=== PATIENT | female | born 1955 | race Two or more races ===

== ENCOUNTER 2024-10-05 08:43 | Emergency (ER) | payer MEDICARE, OTHER ==
[~2024-10-05] VITALS: Ht 152.4 cm; Wt 85.6 kg
--- NOTE | 2024-10-05 09:00 | ED.PDOC ---
History of Present Illness HPI Comments This is a 69 year old female presenting to the ED with chief complaint of neck mass. Patient reports that she has been experiencing a mass to the left side of her throat for some time, causing increased pain, difficulties in swallowing, headaches, and tingling to her bilateral arms. Patient relays that she has tried to follow up with her PCP from [facility] to have a CT scan performed, but she has not had one ordered yet. Patient denies any N/V, sore throat, dizziness, SOB, cough, or any further symptoms. Chief Complaint: Neck Pain Time Seen by MD: 08:56 Reviewed Notes: Nurses Notes, Medications, Allergies Allergies: Coded Allergies: Penicillins (Verified Allergy, Unknown, 10/05/24) Procaine (Verified Allergy, Unknown, 10/05/24) Information Source: Patient Mode of Arrival: Ambulatory Severity: Moderate Timing: Hours Duration: Since onset Prehospital treatment: None Past Medical History PAST MEDICAL HISTORY: Asthma Past Medical History (Other): Glaucoma, white coat syndrome Surgical History (Other): Cataracts COMMUNICATION MANAGER History: Denies all COMMUNICATION MANAGER Hx Family History Family History: Reviewed,noncontributory to illness Social History Smoker: Non-Smoker Alcohol: Denies ETOH Use Drugs: Denies Drug Use Lives In: Home Constitutional: denies: chills, diaphoresis, fatigue, fever, malaise, sweats, weakness, others EENTM: reports: throat pain, throat swelling, others (neck mass); denies: blurred vision, double vision, ear bleeding, ear discharge, ear drainage, ear pain, ear ringing, eye pain, eye redness, hearing loss, mouth pain, mouth swelling, nasal discharge, nose bleeding, nose congestion, nose pain, photophobia, tearing, voice changes Respiratory: denies: cough, hemoptysis, orthopnea, SOB at rest, shortness of breath, SOB with excertion, stridor, wheezing, others Cardiovascular: denies: chest pain, dizzy spells, diaphoresis, Dyspnea on exertion, edema, irregular heart beat, left arm pain, lightheadedness, palpitations, PND, syncope, others Gastrointestinal: denies: abdomen distended, abdominal pain, blood streaked bowels, constipated, diarrhea, dysphagia, difficulty swallowing, hematemesis, melena, nausea, poor appetite, poor fluid intake, rectal bleeding, rectal pain, vomiting, others Genitourinary: denies: abnormal vagina bleeding, burning, dyspareunia, dysuria, flank pain, frequency, hematuria, incontinence, pain, , vagina discharge, urgency, others Neurological: reports: headache, tingling; denies: dizziness, fainting, left sided numbness, left sided weakness, numbness, paresthesia, pre-existing deficit, right sided numbness, right sided weakness, seizure, speech problems, tremors, weakness, others Musculoskeletal: denies: back pain, gout, joint pain, joint swelling, muscle pain, muscle stiffness, neck pain, others Integumetry: denies: bruises, change in color, change in hair/nails, dryness, laceration, lesions, lumps, rash, wounds, others Allergic/Immunocompromised: denies: Difficulty Healing, Frequent Infections, Hives, Itching, others Hematologic/Lymphatic: denies: anemia, blood clots, easy bleeding, easy bruising, swollen glands, others Endocrine: denies: excessive hunger, excessive sweating, excessive thirst, excessive urination, flushing, intolerance to cold, intolerance to heat, unexplained weight gain, unexplained weight loss, others Psychiatric: denies: anxiety, bipolar disorder, depression, hopeless, panic disorder, schizophrenia, sleepless, suicidal, others All Other Systems: Reviewed and Negative Physical Exam General Appearance: Moderate Distress, Normal HEENT: Normal ENT Inspection, Pharynx Normal, TMs Normal Neck: Full Range of Motion, Non-Tender, Other (Submandibular left lymph gland enlarged) Respiratory: Chest Non-Tender, Lungs Clear, No Accessory Muscle Use, No Respiratory Distress, Normal Breath Sounds Cardiovascular: No Edema, No JVD, No Murmur, No Gallop, Normal Peripheral Pulses, Regular Rate/Rhythm Breast Exam: Deferred Gastrointestinal: No Organomegaly, Non Tender, No Pulsatile Mass, Normal Bowel Sounds, Soft Genitalia: Deferred Pelvic: Deferred Rectal: Deferred Extremities: No calf tenderness, Normal capillary refill, Normal inspection, Normal range of motion, Non-tender, No pedal edema Musculoskeletal : Apperance: Normal Neurologic: Alert, stitch separator II-XII nml as Tested, No Motor Deficits, Normal Affect, Normal Mood, No Sensory Deficits Cerebellar Function: Normal Reflexes: Normal Skin: Dry, Normal Color, Warm Peripheral Pulses: 3+ Radial (R), 3+ Radial (L) Lymphatic: No Adenopathy Was a procedure done? Was a procedure done?: No Differential Dx Considerations may include: Sailanditis Radiculopathy X-Ray, Labs, Meds, VS Vital Signs Date Time Temp Pulse Resp B/P (MAP) Pulse Ox O2 Delivery O2 Flow Rate FiO2 10/05/24 09:23 97.8 82 16 165/91 (115) 95 97.8 10/05/24 09:23 82 16 95 Room Air 10/05/24 09:16 78 20 98 Room Air* 0 21 10/05/24 09:00 97.9 95 18 192/93 (126) 96 97.9 204/94 (130) Current Medications Medications (Trade) Dose Ordered Sig/Millie Route Start Time Stop Time Status Last Admin Prednisone 20 mg ONCE ONCE PO 10/05/24 09:00 10/05/24 09:01 DC 10/05/24 09:03 Acetaminophen/ Hydrocodone Bitart ([place] 5/325MG Tab) 1 tab ONCE ONCE PO 10/05/24 09:15 10/05/24 09:16 DC 10/05/24 09:22 Patient alert. Complaining of neck pain. X-ray of the cervical spine does not show any acute process degenerative changes. Vitals stable. Answering questions. Was given prescription of prednisone Keflex antibiotic. Blood pressure was elevated in the ER as per family she has white coat syndrome. Explained to the patient she will need software product specialist possible surgery. Was told to follow up with her primary care physician. Was told to come back if there is any problem. Time of 1ST Reevaluation: 09:56 Reevaluation 1ST: Unchanged Patient Education/Counseling: Diagnosis, Treatment Family Education/Counseling: No Family Present Additional Information Previous visits reviewed: None The following tests were ordered, and results were reviewed by me: C-Spine XR Additional Information was gathered from interviewing the following independent historians: Grandson I reviewed and agreed with the following test results read by other providers: C-Spine XR I discussed treatment and results with medical personnel and: patient and grandson Comprehensive systems review obtained and negative except for what is stated in the HPI. SEPSIS Sepsis Screen Physician Orders Cspine Comp 5 View (10/05/24 08:57) Vital Signs Date Time Temp Pulse Resp B/P (MAP) Pulse Ox O2 Delivery O2 Flow Rate FiO2 10/05/24 09:23 97.8 82 16 165/91 (115) 95 97.8 10/05/24 09:23 82 16 95 Room Air 10/05/24 09:16 78 20 98 Room Air* 0 21 10/05/24 09:00 97.9 95 18 192/93 (126) 96 97.9 204/94 (130) Medications Medications Dose Ordered Sig/Millie Route Start Time Stop Time Status Last Admin Dose Admin Acetaminophen/ Hydrocodone Bitart 1 tab ONCE ONCE PO 10/05/24 09:15 10/05/24 09:16 DC 10/05/24 09:22 Prednisone 20 mg ONCE ONCE PO 10/05/24 09:00 10/05/24 09:01 DC 10/05/24 09:03 Departure 1 Departure Time of Disposition: 09:05 Impression: Primary Impression: Cervical radiculopathy Additional Impression: Salivary disorder Disposition: 01 HOME / SELF CARE / HOMELESS Condition: Good e-Prescriptions Pantoprazole Sodium Sesquihydr (Protonix) 40 Mg Tab 40 MG PO DAILY for 10 Days, #10 TAB Prov: DARCIE CARLIN MD 10/05/24 Prednisone (Prednisone) 20 Mg Tab 20 MG PO DAILY for 5 Days, #5 MG Prov: DARCIE CARLIN MD 10/05/24 Discharged With: Self Critical Care Note Critical Care Time?: No Stability Stability form required: No Heart Score Heart Score: Heart Score Response (Comments) Value History N/A 0 EKG N/A 0 Age N/A 0 Risk Factors N/A 0 Troponin N/A 0 Total 0 I personally scribed for DARCIE CARLIN MD ([email or web address]) on 10/05/24 at 09:00. Electronically submitted by Rohith Armstrong ([email or web address]). I personally scribed for DARCIE CARLIN MD ([email or web address]) on 10/05/24 at 10:21. Electronically submitted by Rohith Armstrong ([email or web address]). DARCIE CARLIN MD Oct 05, 2024 09:00
[2024-10-05] MEDS: predniSONE 20 MG TAB PO ONE (09:03)
[2024-10-05 09:16] VITALS: PULSE 78; RESP 20; O2SAT 98
[2024-10-05] MEDS: HYDROcodone-ACET 5/325MG TAB PO ONE (09:22)
[2024-10-05 09:23] VITALS: BP 165/91; PULSE 82; RESP 16; TEMP 97.8; O2SAT 95
--- NOTE | 2024-10-05 09:37 | DVH ---
INDICATION: rediculopathy COMPARISON: None TECHNIQUE: 3 views of the cervical spine were obtained. FINDINGS: The cervical vertebral alignment is normal. The predental space is normal. Severe multilevel degenerative changes most pronounced at C3-C4 through C5-C6 causing moderate to sev ere neural foraminal and spinal canal stenosis. No acute fracture, vertebral compression deformity or aggressive osseous lesions. The imaged lung apices are unremarkable. IMPRESSION: No acute fracture.
[2024-10-05] MEDS ORDERED: PRED20TA2 PO (10:25)
[2024-10-05] MEDS ORDERED: PANT40TA2 PO (10:25)
[2024-10-05] MEDS ORDERED: CEPH250C PO (10:41)
== END 2024-10-05 10:56 | disposition home or self-care (01) ==
LOC: ER 08:43 → EEVIPCON 08:43 → ER 10:48
DX: M54.12 Radiculopathy, cervical region (principal); K11.9 Disease of salivary gland, unspecified; J45.909 Unspecified asthma, uncomplicated; Z98.890 Other specified postprocedural states; Z88.0 Allergy status to penicillin; Z88.8 Allergy status to other drugs, medicaments and biological substances
CPT/HCPCS: 72050; 99283; J7512